=== PATIENT | male | born 1965 | race Caucasian/White ===

== ENCOUNTER 2018-08-07 08:14 | Day surgery (SDC) | payer MEDICAID, OTHER ==
[~2018-08-07] VITALS: Ht 188 cm; Wt 59.6 kg
[~2018-08-07 08:14] MED LIST: PROPOFOL 200 MG INJ ONE
[2018-08-07] MEDS ORDERED: FENTAnyl 50 MCG/ML VIAL ONE (10:42)
[2018-08-07] MEDS ORDERED: PROPOFOL 20 ML ONE (10:42)
--- NOTE | 2018-08-07 10:44 | PREAC ---
Date/Time of Note Date/Time of Note DATE: 08/07/18 TIME: 10:40 Anesthesia Eval and Record Evaluation Time Pre-Procedure Interview DATE: 08/07/18 TIME: 10:40 Age 52 Sex male NPO: 8 hrs Preoperative diagnosis historyof colon polyp, rctal bleeding Planned procedure colonoscopy Past Medical History Past Medical History: Includes Pulm: COPD Infection(s): Hep C Surgery & Anesthesia Issues No known issue Meds Anticoagulation: No Beta Marlen within 24 hr: No Reason Beta Marlen not given: Pt. not on B-Marlen Reported Medications [None] No Conflict Check 08/05/10 Meds reviewed: Yes Allergies Coded Allergies: No Known Allergies (Verified Allergy, Mild, 08/05/10) Allergies Reviewed: Yes (n/a) Labs/Studies Labs Reviewed: Reviewed by anesthesiologist test: N/A Studies: ECG (n/a), CXR (n/a) Pre-procedure Exam Airway: Adequate mouth opening Mallampati: Mallampati I Teeth: Abnormal (missing) Lung: Normal Heart: Normal ASA Physical Status ASA physical status: 2 Emergency: None Planned Anesthetic General/MAC: MAC Planned Pain Management Parenteral pain med Pre-operative Attestations Prior to commencing anesthesia and surgery, the patient was re-evaluated, there was verification of: *The patient's identity *The results of appropriate recent lab work and preoperative vital signs *The above evaluation not changing prior to induction *Anesthetic plan, risk benefits, alternative and complications discussed with patient/family; questions answered; patient/family understands, accepts and wishes to proceed. RETA RAMÍREZ MD Aug 07, 2018 10:44
[2018-08-07 10:45] VITALS: Ht 188 cm; Wt 59.6 kg
[2018-08-07 10:54] VITALS: BP 120/75; PULSE 77; RESP 18
[2018-08-07] MEDS ORDERED: ONDANSETRON 4 MG INJ IV PRN (11:00)
--- NOTE | 2018-08-07 11:24 | PAC ---
Date/Time of Note Date/Time of Note DATE: 08/07/18 TIME: 11:23 Post-Anesthesia Notes Post-Anesthesia Note Last documented vital signs BP 100/55 HR 60 Sat 100% RR19 Tem 99 Activity: WNL Respiratory function: WNL Cardiovascular function: WNL Mental status: Baseline Pain reasonably controlled: Yes Hydration appropriate: Yes Nausea/Vomiting absent: No RETA RAMÍREZ MD Aug 07, 2018 11:24
[2018-08-07 11:46] VITALS: BP 127/79; PULSE 57; RESP 18
== END 2018-08-07 14:23 | disposition home or self-care (01) ==
LOC: GIL 08:14
PROVIDERS: ATTEND Internal Medicine Gastroenterology
DX: R19.4 Change in bowel habit (principal); K64.8 Other hemorrhoids; Z86.010 Personal history of colon polyps; J44.9 Chronic obstructive pulmonary disease, unspecified
CPT/HCPCS: 45378; 88305; J3010; Z7610